=== PATIENT | female | born 1955 ===

== ENCOUNTER 2017-08-02 05:36 | Day surgery (SDC) | payer OTHER ==
[2017-08-02] VITALS (9 sets, daily range): BP systolic 106–121; BP diastolic 64–80; PULSE 51–66; TEMP 97.3–97.7
[~2017-08-02] VITALS: Ht 177.8 cm; Wt 80.8 kg
[2017-08-02] MEDS ORDERED: COLACE 100100 MG/CAP PO (09:16)
[2017-08-02] MEDS ORDERED: ULTRAM 50MG TAB50 MG PO (09:16)
[2017-08-02] MEDS ORDERED: MOBIC15 MG PO (09:18)
[2017-08-02] MEDS ORDERED: ZOFRAN 4MG T4 MG/TAB PO (09:18)
[2017-08-02] MEDS ORDERED: ASPIRIN 32325 MG/TAB PO (09:19)
== END 2017-08-02 11:20 | disposition home or self-care (01) ==
LOC: SDCO 05:36
DX: M22.42 Chondromalacia patellae, left knee (principal); M23.222 Derangement of posterior horn of medial meniscus due to old tear or injury, left knee; M23.262 Derangement of other lateral meniscus due to old tear or injury, left knee; Z90.710 Acquired absence of both cervix and uterus; Z90.722 Acquired absence of ovaries, bilateral; Z90.79 Acquired absence of other genital organ(s); Z81.8 Family history of other mental and behavioral disorders; Z82.3 Family history of stroke; Z82.5 Family history of asthma and other chronic lower respiratory diseases; Z80.3 Family history of malignant neoplasm of breast; Z82.49 Family history of ischemic heart disease and other diseases of the circulatory system
CPT/HCPCS: J0171; J0690; J1100; J1200; J1885; J2250; J2405; J2704; J3010; J7120

== ENCOUNTER → 2017-09-25 | Outpatient (REF) ==
[~2017-09-25] MED LIST: ASPIRIN 32325 MG/TAB PO; COLACE 100100 MG/CAP PO; MOBIC15 MG PO; ULTRAM 50MG TAB50 MG PO; ZOFRAN 4MG T4 MG/TAB PO
== END ==
LOC: ZLAB.WCH 08:33
DX: Z01.89 Encounter for other specified special examinations (principal)

== ENCOUNTER → 2018-09-01 | Outpatient (REF) | LOC: ZLAB.WCH 16:32 | DX: Z01.89 Encounter for other specified special examinations (principal) ==